=== PATIENT | male | born 1975 | race Caucasian/White ===

== ENCOUNTER 2016-12-04 21:38 | Emergency (ER) | payer OTHER ==
[2016-12-04 22:00] VITALS: PULSE 72
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
--- NOTE | 2016-12-04 23:10 | XR ---
EXAM: XR Left Foot Complete, 3 or More Views. CLINICAL HISTORY: Reason: Pain TECHNIQUE: Frontal, lateral and oblique views of the left foot. COMPARISON: No relevant prior studies available. FINDINGS: Bones/joints: Unremarkable. No acute fracture. No dislocation. Soft tissues: Unremarkable. No radiopaque foreign body. IMPRESSION: Normal left foot x-rays.
[2016-12-04 23:31] VITALS: BP 135/65; RESP 18; TEMP 98.2
== END 2016-12-04 23:30 | disposition home or self-care (01) ==
LOC: EC 21:38
DX: S46.911A Strain of unspecified muscle, fascia and tendon at shoulder and upper arm level, right arm, initial encounter (principal); S90.112A Contusion of left great toe without damage to nail, initial encounter; F31.9 Bipolar disorder, unspecified; Z79.899 Other long term (current) drug therapy; V87 Traffic accident of specified type but victim's mode of transport unknown; Y92.410 Unspecified street and highway as the place of occurrence of the external cause
CPT/HCPCS: 99284

== ENCOUNTER 2016-12-06 11:39 | Emergency (ER) | payer OTHER, BC ==
[2016-12-06 11:48] VITALS: RESP 18
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
[2016-12-06 13:46] VITALS: BP 125/56; PULSE 77; TEMP 97.9
== END 2016-12-06 13:30 | disposition home or self-care (01) ==
LOC: EC 11:39
DX: S09.90XA Unspecified injury of head, initial encounter (principal); R42 Dizziness and giddiness; F31.9 Bipolar disorder, unspecified; Z79.899 Other long term (current) drug therapy; V89.2XXA Person injured in unspecified motor-vehicle accident, traffic, initial encounter; Y92.009 Unspecified place in unspecified non-institutional (private) residence as the place of occurrence of the external cause
CPT/HCPCS: 70450; 99284

== ENCOUNTER → 2017-02-01 | Outpatient (CLI) | payer BC ==
--- NOTE | 2017-02-01 10:55 | CT ---
EXAMINATION TYPE: CT sinus wo con DATE OF EXAM: 02/01/2017 9:26 AM COMPARISON: NONE HISTORY: Nasal polyps, chronic sinusitis CT DLP: 545 mGycm Automated exposure control for dose reduction was used. Helical imaging through the paranasal sinuses FINDINGS: Extensive mucosal thickening is present within the bilateral maxillary sinuses, lobular soft tissue d ensity is present within the bilateral maxillary sinus, ethmoid air cells, opacification of the left sphenoid sinus and frontoethmoidal region, mucosal thickening also present in the frontal sinus. Disc ontinuity of the left frontal sinus may be due to prior surgical intervention, superficial scalp thic kening is present at this level. Orbits show symmetric appearance. Postop changes are noted to the si nuses. No thickening of the tympanic membranes. Auditory ossicles are unremarkable as seen. Temporomandibula r joints are intact. IMPRESSION: FINDINGS COMPATIBLE WITH PERSISTENT OR RECURRENT POLYP DISEASE, SINUSITIS.
== END | disposition home or self-care (01) ==
LOC: RADCTMAIN 09:12
PROVIDERS: ATTEND Otolaryngology
DX: J32.9 Chronic sinusitis, unspecified (principal)
CPT/HCPCS: 70486

== ENCOUNTER → 2017-03-03 | Outpatient (CLI) | payer BC ==
[2017-03-03 11:25] LABS: Blood Urea Nitrogen 12 mg/dL (9-20); Non-African American GFR(MDRD) >60 (>60 ml/min/1.73 sqM)
[2017-03-03 12:01] LABS: Lithium 0.6 mmol/L
== END | disposition home or self-care (01) ==
LOC: LABWHC1 10:01
PROVIDERS: ATTEND Internal Medicine Endocrinology, Diabetes & Metabolism
DX: E05.90 Thyrotoxicosis, unspecified without thyrotoxic crisis or storm (principal); F31.31 Bipolar disorder, current episode depressed, mild
CPT/HCPCS: 36415; 80178; 82565; 84439; 84443; 84445; 84480; 84520

== ENCOUNTER → 2017-03-19 | Outpatient (CLI) | payer BC ==
--- NOTE | 2017-03-19 10:55 | US ---
EXAMINATION TYPE: US thyroid st tissue head/neck DATE OF EXAM: 03/19/2017 COMPARISON: NONE CLINICAL HISTORY: E05.90 thyrotoxicosis. GLAND SIZE: Right Lobe: 5.9 x 2.4 x 1.7 cm Overall Parenchyma: homogenous Left Lobe: 5.5 x 2.4 x 1.5 cm Overall Parenchyma: homogeneous Isthmus Thickness: 0.5 cm NODULES RIGHT: # of nodules measured on right: 2 1. 0.6 X 0.8 x 0.6 cm hypoechoic cystic nodule at the lower pole with well-defined margins; present with microcalcifications. This nodule is wider than tall and shows no intranodular vascularity. 2. 0.5 X 0.4 x 0.3 cm hypoechoic solid nodule at the lower mid pole with well-defined margins. This nodule is wider than tall and shows no intranodular vascularity. LEFT: # of nodules measured on left: 2 1. 1.8 X 1.1 x 1.0 cm hypoechoic cystic nodule at the mid pole with well-defined margins; present w ith microcalcifications. This nodule is wider than tall and shows no intranodular vascularity. 2. 1.2 X 0.8 x 0.6 cm hypoechoic cystic nodule at the lower pole with well-defined margins; present with microcalcifications. This nodule is wider than tall and shows no intranodular vascularity. ISTHMUS: # of nodules measured in the isthmus: 0 Bilateral neck scanned, no evidence of lymphadenopathy. Thyroid gland is slightly enlarged in size and fairly homogeneous echotexture with scattered small no dules in the right thyroid lobe. There are 2 larger cystic nodules in left thyroid lobe with hyperech oic foci felt to reflect colloid, largest measures 1.8 cm on long axis mid pole level. IMPRESSION: Thyroid gland is slightly enlarged in size with few greater than 1 cm cystic nodules left thyroid lob e felt to contain colloid or be benign. No greater than 1 cm suspicious solid nodules are evident sharita aterally.
--- NOTE | 2017-03-20 11:24 | NM ---
EXAMINATION TYPE: NM thyroid image w uptake DATE OF EXAM: 03/20/2017 COMPARISON: NONE HISTORY: Thyrotoxicosis TECHNIQUE: After the intravenous administration of 11.0 mCi Tc 99m Sodium Pertechnetate, thyroid imag ing is performed 10 minutes post injection. Thyroid iodine uptake is calculated after the oral admini stration of 20.0 uCi I-131 capsule. FINDINGS: There is normal distribution of activity throughout the gland. There are no hot or cold le sions. The 4 hour iodine uptake is calculated at 7.1% (normal range 8-14%). The 24-hour iodine uptake is marilu culated at 17.3% (normal range 15-35%). IMPRESSION: NORMAL THYROID SCAN AND UPTAKE.
== END | disposition home or self-care (01) ==
LOC: RADUSMAIN 09:48
PROVIDERS: ATTEND Internal Medicine Endocrinology, Diabetes & Metabolism
DX: E04.2 Nontoxic multinodular goiter (principal); E05.90 Thyrotoxicosis, unspecified without thyrotoxic crisis or storm
CPT/HCPCS: 76536; 78014

== ENCOUNTER 2017-05-24 13:02 | Inpatient (IN) | payer BC, OTHER ==
--- NOTE | 2017-05-24 13:32 | ED ---
General Adult HPI - General Chief complaint: Psychiatric Symptoms Stated complaint: Mental Health Time Seen by Provider: 05/24/17 13:11 Source: patient, family, RN notes reviewed Mode of arrival: ambulatory Limitations: no limitations - History of Present Illness Initial comments: 42-year-old male presents to the emergency department with a chief complaint of bipolar episode. Patient states she's having large episodes of depression as well as zayra that comes out in a rage. He has had suicidal thoughts at this time he has no suicidal thoughts. Patient states his urged him to be evaluated. Last saw psychiatrist was 2 months ago. Patient states he has been taking all of his medications as prescribed. At this time the patient has no other complaints. Has no physical complaints.Patient denies any recent fever, chills, shortness of breath, chest pain, back pain, abdominal pain, nausea vomiting, numbness or tingling, dysuria or hematuria, constipation or diarrhea, headaches or visual changes, or any other current symptoms. - Related Data Home Medications Medication Instructions Recorded Confirmed [place] Carbonate 600 mg PO BID 12/04/16 05/24/17 Lurasidone [Latuda] 80 mg PO HS 12/04/16 05/24/17 ALPRAZolam [Xanax] 0.5 mg PO BID PRN 05/24/17 05/24/17 Fluticasone Nasal [place] [Flonase 2 spr EA NOSTRIL HS 05/24/17 05/24/17 Nasal [place]] Allergies Allergy/AdvReac Type Severity Reaction Status Date / Time No Known Allergies Allergy Verified 05/24/17 13:27 Review of Systems ROS Statement: Those systems with pertinent positive or pertinent negative responses have been documented in the HPI. ROS Other: All systems not noted in ROS Statement are negative. Past Medical History Past Medical History: No Reported History History of Any Multi-Drug Resistant Organisms: None Reported Additional Past Surgical History / Comment(s): sinus sx Past Psychological History: Anxiety, Bipolar, Depression Smoking Status: Never smoker Past Alcohol Use History: None Reported Past Drug Use History: None Reported General Exam Limitations: no limitations General appearance: alert, in no apparent distress Head exam: Present: atraumatic, normocephalic, normal inspection Neck exam: Present: normal inspection. Absent: tenderness, meningismus, lymphadenopathy Respiratory exam: Present: normal lung sounds bilaterally. Absent: respiratory distress, wheezes, rales, rhonchi, stridor Cardiovascular Exam: Present: regular rate, normal rhythm, normal heart sounds. Absent: systolic murmur, diastolic murmur, rubs, gallop, clicks Neurological exam: Present: alert, oriented X3 Psychiatric exam: Present: agitated, suicidal ideation. Absent: homicidal ideation Skin exam: Present: warm, dry, intact, normal color. Absent: rash Course Vital Signs 05/24/17 13:03 Temperature 98.7 F Pulse Rate 76 Respiratory 18 Rate Blood Pressure 120/75 O2 Sat by Pulse 97 Oximetry Medical Decision Making - Medical Decision Making 42-year-old male presents emergency department with a chief complaint of bipolar episode. At this time the patient does not appear to be suffering from acute medical emergencies and he is cleared to be evaluated by psychiatry. At this time psychiatry does recommend admission. - Lab Data Lab Results 05/24/17 05/24/17 Range/Units 13:30 13:47 Urine Opiates Screen Not Detected (NotDetected) Ur Oxycodone Screen Not Detected (NotDetected) Urine Methadone Screen Not Detected (NotDetected) Ur Propoxyphene Screen Not Detected (NotDetected) Ur Barbiturates Screen Not Detected (NotDetected) U Tricyclic Antidepress Not Detected (NotDetected) Ur Phencyclidine Scrn Not Detected (NotDetected) Ur Amphetamines Screen Not Detected (NotDetected) U Methamphetamines Scrn Not Detected (NotDetected) U Benzodiazepines Scrn Not Detected (NotDetected) [place] 1.0 mmol/L Urine Cocaine Screen Not Detected (NotDetected) U Marijuana (THC) Screen Not Detected (NotDetected) Disposition Clinical Impression: Depression Disposition: TRANSFER TO PSYCH HOSP/UNIT Referrals: Evans Alicea MD [Primary Care Provider] - 1-2 days
[2017-05-24] MEDS ORDERED: ZIPRASIDONE 20 MG VIAL IM PRN (18:19)
[2017-05-24] MEDS ORDERED: MAGNESIUM HYDROXIDE 2,400 MG/10 ML CUP PO PRN (18:19)
[2017-05-24] MEDS ORDERED: ACETAMINOPHEN TAB 325 MG TAB PO PRN (18:19)
[2017-05-24] MEDS ORDERED: LORazepam 1 MG TAB PO PRN (18:19)
[2017-05-24] MEDS ORDERED: MAG HYDROX/AL HYDROX/SIMETH 30 ML CUP PO PRN (18:19)
[2017-05-24] MEDS: LITHIUM CARBONATE 300 MG CAP PO SCH (20:21)
[2017-05-24] MEDS: FLUTICASONE 50MCG/SPRAY NASAL 16GM EA NOSTRIL SCH (20:21)
[2017-05-24] MEDS: LURASIDONE 80 MG TAB PO SCH (20:21)
--- NOTE | 2017-05-24 22:58 | P.CONS ---
History of Present Illness - Reason for Consult Consult date: 05/24/17 Medical management Requesting physician: Tiarra Davies - Chief Complaint Depressed and anxious - History of Present Illness Consultation: This is a 32-year-old patient of Dr. Alicea. Has a known history of bipolar disorder. Patient's fluctuating both between depression and 9 anxiety interfering with his performance. Hence patient presented to the ER and decided to come in. Patient refusing rather depressed and answers many getting into a rage. He is also had occasional suicidal thoughts. Patient has been taking his medications as advised. GEN.: None EYES: None HEENT: None NECK: None RESPIRATORY: None CARDIOVASCULAR: None GASTROINTESTINAL: None GENITOURINARY: None MUSCULOSKELETAL: None LYMPHATICS: None HEMATOLOGICAL: None PSYCHIATRY: As above NEUROLOGICAL: None Past medical history: Bipolar disorder Past surgical history: Sinus surgery Social history: No smoking, no alcohol. 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 Family history: Reviewed, noncontributory to presentation Home medications: Reviewed in the computer ALLERGIES: None VITAL SIGNS: 98.4, 18, 123/72, 97% room air GENERAL: Average built, BMI 30.3, laying in bed anxious appearing. EYES: Pupils equal. Conjunctiva normal. HEENT: External appearance of nose and ears normal, oral cavity grossly normal. NECK: JVD not raised; masses not palpable. HEART: First and second heart sounds are normal; no edema. LUNGS: Respiratory rate normal; clear to auscultation. ABDOMEN: Soft, nontender, liver spleen not palpable, no masses palpable. LYMPHATICS: No lymph nodes palpable in the axilla and neck. PSYCH: Alert and oriented x3; mood and affect anxious appearingl. NEUROLOGICAL: Cranial nerves grossly intact; no facial asymmetry, power and sensation grossly intact. Investigations: Urine drug screen negative Assessment: -Obesity BMI 30.3 -Bipolar disorder with both manic and depressive episodes with acute flareup -Chronic sinusitis Plan: Patient to continue on Flonase. Should see a dietitian for weight loss measures. To follow-up with PCP. Psychiatry medications per attending. Taken Dr. Davies Past Medical History Past Medical History: No Reported History History of Any Multi-Drug Resistant Organisms: None Reported Additional Past Surgical History / Comment(s): sinus sx Past Psychological History: Anxiety, Bipolar, Depression Smoking Status: Never smoker Past Alcohol Use History: None Reported Past Drug Use History: None Reported Medications and Allergies Home Medications Medication Instructions Recorded Confirmed Type [place] Carbonate 600 mg PO BID 12/04/16 05/24/17 History Lurasidone [Latuda] 80 mg PO HS 12/04/16 05/24/17 History ALPRAZolam [Xanax] 0.5 mg PO BID PRN 05/24/17 05/24/17 History Fluticasone Nasal [place] [Flonase 2 spr EA NOSTRIL HS 05/24/17 05/24/17 History Nasal [place]] Allergies Allergy/AdvReac Type Severity Reaction Status Date / Time No Known Allergies Allergy Verified 05/24/17 13:27
[2017-05-25] MEDS: LITHIUM CARBONATE 300 MG CAP PO SCH ×2 (08:34→20:37)
[2017-05-25 09:43] LABS: Basophils # (A) 0.1 k/uL (0-0.2); Basophils % (A) 1 %; CH 31.1; CHCM 34.9; Eosinophils # (A) 0.9 k/uL (0-0.7); Eosinophils % (A) 11 %; HCT 47.4 % (39.0-53.0); HDW 2.81; HGB 16.5 gm/dL (13.0-17.5); Luc # (Auto) 0.24; Luc % (Auto) 3; Lymphocytes # (A) 2.2 k/uL (1.0-4.8); Lymphocytes % (A) 27 %; MCH 31.1 pg (25.0-35.0); MCHC 34.8 g/dL (31.0-37.0); MCV 89.6 fL (80.0-100.0); Mean Platelet Volume 6.8; Monocytes # (A) 0.4 k/uL (0-1.0); Monocytes % (A) 5 %; Neutrophils # (A) 4.2 k/uL (1.3-7.7); Neutrophils % (A) 53 %; RBC 5.29 m/uL (4.30-5.90); RDW 12.7 % (11.5-15.5); WBC (Perox) 8.33
[2017-05-25 10:05] LABS: ALT 33 U/L (21-72); AST 16 U/L (17-59); Alkaline Phosphatase 61 U/L (38-126); Anion Gap 13 mmol/L; Bilirubin, Delta 0.2 mg/dL (0.0-0.2); Blood Urea Nitrogen 16 mg/dL (9-20); Calcium 9.6 mg/dL (8.4-10.2); Carbon Dioxide 19 mmol/L (22-30); Chloride 107 mmol/L (98-107); Glucose 174 mg/dL (74-99); Non-African American GFR(MDRD) >60 (>60 ml/min/1.73 sqM); Potassium 4.6 mmol/L (3.5-5.1); Sodium 139 mmol/L (137-145); Total Bilirubin 0.4 mg/dL (0.2-1.3); Total Protein 6.8 g/dL (6.3-8.2)
--- NOTE | 2017-05-25 15:06 | P.HP ---
Psychiatric H&P - . H&P Date: 05/25/17 History & Physical: Allergies Allergy/AdvReac Type Severity Reaction Status Date / Time No Known Allergies Allergy Verified 05/24/17 13:27 Vital Signs Temp 97.9 F 05/25/17 06:36 Pulse 62 05/25/17 06:36 Resp 16 05/25/17 06:36 BP 108/58 05/25/17 06:36 Pulse Ox 97 05/24/17 18:07 Intake & Output 05/24/17 05/25/17 05/25/17 18:59 06:59 18:59 Weight 90.29 kg Laboratory Last Values WBC 8.0 k/uL (3.8-10.6) 05/25/17 08:53 RBC 5.29 m/uL (4.30-5.90) 05/25/17 08:53 Hgb 16.5 gm/dL (13.0-17.5) 05/25/17 08:53 Hct 47.4 % (39.0-53.0) 05/25/17 08:53 MCV 89.6 fL (80.0-100.0) 05/25/17 08:53 MCH 31.1 pg (25.0-35.0) 05/25/17 08:53 MCHC 34.8 g/dL (31.0-37.0) 05/25/17 08:53 RDW 12.7 % (11.5-15.5) 05/25/17 08:53 Plt Count 381 k/uL (150-450) 05/25/17 08:53 Neutrophils % 53 % 05/25/17 08:53 Lymphocytes % 27 % 05/25/17 08:53 Monocytes % 5 % 05/25/17 08:53 Eosinophils % 11 % 05/25/17 08:53 Basophils % 1 % 05/25/17 08:53 Neutrophils # 4.2 k/uL (1.3-7.7) 05/25/17 08:53 Lymphocytes # 2.2 k/uL (1.0-4.8) 05/25/17 08:53 Monocytes # 0.4 k/uL (0-1.0) 05/25/17 08:53 Eosinophils # 0.9 k/uL (0-0.7) H 05/25/17 08:53 Basophils # 0.1 k/uL (0-0.2) 05/25/17 08:53 Sodium 139 mmol/L (137-145) 05/25/17 08:53 Potassium 4.6 mmol/L (3.5-5.1) 05/25/17 08:53 Chloride 107 mmol/L (98-107) 05/25/17 08:53 Carbon Dioxide 19 mmol/L (22-30) L 05/25/17 08:53 Anion Gap 13 mmol/L 05/25/17 08:53 BUN 16 mg/dL (9-20) 05/25/17 08:53 Creatinine 0.89 mg/dL (0.66-1.25) 05/25/17 08:53 Est GFR (MDRD) Af Amer >60 (>60 ml/min/1.73 sqM) 05/25/17 08:53 Est GFR (MDRD) Non-Af >60 (>60 ml/min/1.73 sqM) 05/25/17 08:53 Glucose 174 mg/dL (74-99) H 05/25/17 08:53 Calcium 9.6 mg/dL (8.4-10.2) 05/25/17 08:53 Total Bilirubin 0.4 mg/dL (0.2-1.3) 05/25/17 08:53 Conjugated Bilirubin 0.0 mg/dL (0.0-0.3) 05/25/17 08:53 Unconjugated Bilirubin 0.2 mg/dL (0.0-1.1) 05/25/17 08:53 Delta Bilirubin 0.2 mg/dL (0.0-0.2) 05/25/17 08:53 AST 16 U/L (17-59) L 05/25/17 08:53 ALT 33 U/L (21-72) 05/25/17 08:53 Alkaline Phosphatase 61 U/L (38-126) 05/25/17 08:53 Total Protein 6.8 g/dL (6.3-8.2) 05/25/17 08:53 Albumin 4.2 g/dL (3.5-5.0) 05/25/17 08:53 TSH 2.440 mIU/L (0.465-4.680) 05/25/17 08:53 Urine Opiates Screen Not Detected (NotDetected) 05/24/17 13:30 Ur Oxycodone Screen Not Detected (NotDetected) 05/24/17 13:30 Urine Methadone Screen Not Detected (NotDetected) 05/24/17 13:30 Ur Propoxyphene Screen Not Detected (NotDetected) 05/24/17 13:30 Ur Barbiturates Screen Not Detected (NotDetected) 05/24/17 13:30 U Tricyclic Antidepress Not Detected (NotDetected) 05/24/17 13:30 Ur Phencyclidine Scrn Not Detected (NotDetected) 05/24/17 13:30 Ur Amphetamines Screen Not Detected (NotDetected) 05/24/17 13:30 U Methamphetamines Scrn Not Detected (NotDetected) 05/24/17 13:30 U Benzodiazepines Scrn Not Detected (NotDetected) 05/24/17 13:30 [place] 1.0 mmol/L 05/24/17 13:47 Urine Cocaine Screen Not Detected (NotDetected) 05/24/17 13:30 U Marijuana (THC) Screen Not Detected (NotDetected) 05/24/17 13:30 05/25/17 14:50 Identification: Patient is a 42-year-old male who was brought to the emergency room after his spoke with his psychiatrist, Dr. Gold due to his recent episodes of agitation and rage. History of Present Illness: Patient states that he has been feeling depressed for over the last year with decreased motivation and increased sleep with difficulty getting up in the morning and so he was begun on Cymbalta 4 months ago at 20 mg and after one month increased to 30 mg. He last saw Dr. Gold 2 months ago and was to see him yesterday. Patient states that recently he was not compliant with his medications due to his being in the hospital and he DC'd the Cymbalta himself 2 weeks ago. He states that about that time or perhaps a week prior to that he began to feel more agitated and having issues at home yelling and screaming with verbal fights with his he reports no physical confrontations and no property distraction. Patient states he has been taking his lithium 600 mg twice a day and his Latuda 80 mg at bedtime which he does take with food. Patient states that he is not having any current suicidal ideation and states that he is feeling tired with no motivation and feeling depressed. Patient didn't however tell his that he was feeling suicidal, stating that he could make look like an accident at work Patient states that he has had mood issues since his late teens but was not diagnosed with bipolar disorder until 2009. He is able to report episodes in the past of manic behavior where he doesn't sleep has an increased level of energy, talks a lot talks too fast and has impulsive behaviors of spending money. He states he also has had unrealistic ideas at that time and on several occasions when his episodes of been severe he has had auditory hallucinations and feels that he has special ann. He also reports that he is extremely irritable during these periods. Patient also is able to endorse episodes of depression with increased amounts of sleep and decreased levels of energy and a lack of motivation. He states he is even more socially withdrawn than usual and he doesn't talk to anyone at those times. He reports feeling helpless and hopeless at those times and is not productive at work. He reports taking overdoses in the past on 3 occasions as a suicide attempt but received no medical care for any of them. Patient reports that he has lost 2 jobs in the past due to his episodes of depression prior to the diagnosis being made in 2008 and in 2009. I asked the patient about the notebook that was placed at the nursing station where he has written over and over and he describes these as affirmations and this is a technique that he has used to try to have positive outlook in the future. He states he was born and raised in [place] and would like to return there and would like to be financially successful. Patient denies any obsessive -compulsive symptoms. Past Psychiatric History: Patient reports that he was admitted in 2009 and again in August 2016. He reports that he was treated for depression at the age of 34 for the first time with Zoloft which caused a manic episode resulting in his admission and he was admitted in August 2016 in [place] with symptoms of depression. Patient reports he has been tried on Tegretol, Risperdal, Zoloft , Wellbutrin and Cymbalta and Lamictal. Patient reports he had a manic episode after being treated with Zoloft. Past Medical/Surgical History: Patient reports chronic sinus infections and is status post for sinus surgeries. He reports no other medical problems and no other surgical procedures. Home Medications Medication Instructions Recorded Confirmed [place] Carbonate 600 mg PO BID 12/04/16 05/24/17 Lurasidone [Latuda] 80 mg PO 12/04/16 05/24/17 ALPRAZolam [Xanax] 0.5 mg PO BID PRN 05/24/17 05/24/17 Fluticasone Nasal [place] [Flonase 2 spr EA NOSTRIL HS 05/24/17 05/24/17 Nasal [place]] Family History: Patient states that he has a brother who is treated for anxiety , a maternal cousin who is diagnosed with bipolar disorder and he states that both grandfathers had alcohol use problems. He reports no completed suicides in the family Social History: Patient was born and raised in [place] to parents who are both still alive. He has 2 brothers and 3 sisters and states he has a good relationship with his family. Patient completed high school and went on to obtain a bachelor science degree in electrical engineering. Patient has worked since he finished college and states that the only time he did not work was when he was fired in 2009 and it took him a year to find another job. He states they moved from [place] to [place] for his work and then back to [place] due to his having multiple sclerosis and not tolerating the warm weather. He is currently working and states he last worked several days ago. Patient is for the last 10 years and has an 8-year-old daughter and a 3- year-old son, a his 's 19-year-old son also lives with the them. Patient reports no abuse history. Substance Use History: patient states that he uses alcohol on a rare occasion and has no prior current history of drug use. Patient reports he has never used tobacco products. Legal History: Denies any history Mental Status:Appearance/Attitude: Patient is appropriately dressed and makes good eye contact and is cooperative. Behavior: Patient does not display any psychomotor agitation or retardation. Speech/Language: Patient's speech is spontaneous, of normal volume and rhythm and he is coherent. Thought Process: Patient is goal-directed and there is no evidence of circumstantial or tangential thought and no loose associations or flight of ideas. Thought Content: Patient denies any auditory or visual hallucinations and no delusions or paranoid ideation are elicited. The patient denies racing thoughts and denies having any unrealistic goals for himself. Patient reports that he has no energy and has decreased motivation, he reports that he is oversleeping and continues to feel tired. Patient reports no appetite disturbance. Patient states that he is socially withdrawn and not talking much. Patient also reports that he is feeling more agitated and has gotten into verbal disagreements and confrontations with his . Suicidal/Homicidal Ideation: Patient denies any current suicidal or homicidal ideation. Sensorium/Cognition: Patient is alert and oriented to person, place, and time and his memory is grossly intact. Mood/Affect: Patient's mood is depressed and his affect is blunted. Insight/Judgement: Patient's insight and judgment are fair. Intellectual Functioning: Patient's intellectual functioning appears average Strength/Weaknesses: Patient is employed, has a supportive family/recent noncompliance with medication Assessment: Patient presents with a history of bipolar disorder and states that he has been depressed for over the last year and that his current combination of lithium and Latuda were not fully resolving his depressive symptoms. He was recently begun on Cymbalta and titrated to a dose of 30 mg a day which the patient states he stopped himself 2 weeks ago when he was not taking his medications on a regular basis while his was in the hospital. Patient states that about 3 weeks ago he began feeling more agitated and irritable and has been having verbal disagreements with his . Patient also voiced suicidal ideation to his but denies it to me currently. Patient is expressing depressive symptoms of decreased energy and motivation, stating that he oversleeps and that he is feeling hopeless and helpless. Admission Diagnoses: Bipolar type I disorder, current episode depressed Plan: Patient was admitted on a voluntary basis, routine laboratory studies and a medical consultation were requested. Patient was also ordered group and activity therapy and he will be maintained on routine observations. Patient was continued on his lithium carbonate 600 mg twice a day to target his mood, Latuda 80 mg at bedtime with food to target his depression. Patient will have a repeat lithium level drawn tomorrow morning to get an accurate reading of his lithium level. Patient and I discussed a retrial of Lamictal to augment the lithium and stabilizing his mood and treating his depression. Patient was agreeable to this and so we'll begin Lamictal 25 mg a day. 05/25/17 15:02
[2017-05-25] MEDS: FLUTICASONE 50MCG/SPRAY NASAL 16GM EA NOSTRIL SCH (20:37)
[2017-05-25] MEDS: LURASIDONE 80 MG TAB PO SCH (20:37)
[2017-05-26] MEDS: lamoTRIgine 25 MG TAB PO SCH (08:23)
[2017-05-26] MEDS: LITHIUM CARBONATE 300 MG CAP PO SCH ×2 (08:23→20:46)
--- NOTE | 2017-05-26 13:34 | P.PN ---
Progress Note - Text Date of service: 05/26/2017 Chief complaint: "I am feeling better" Subjective: The patient has been seen today as follow-up, chart reviewed, case discussed with the treatment team. Patient slept about 6 hours last night but was interrupted. Patient has been going to groups and other unit activities. Patient reports fair appetite problems. Patient reports his depression still there and has times feels very hopeless and worthless. He denies any suicidal thoughts since he came to the hospital but he admitted for not feeling safe outside the hospital. The patient endorsed feeling more irritable, easily agitated and "kind of hyper ". The patient denies any auditory or visual hallucinations. Also the patient denies any paranoid ideation. The patient is compliant with medications and denies any adverse reactions. Review of other systems: Patient denies any physical symptoms besides what has been mentioned above. No breathing problems, no chest pain reported today. Objective: Vitals has been reviewed. Mental status examination; Appearance: The patient appears stated age, adequately groomed, no specific features. Gait/posture:Normal arm swinging: No abnormal movements. Attitude and behavior: engaged, cooperative, intermittent eye contact. Motor activity: normal psychomotor activity Speech: normal tone and volume Mood: depressed Affect: constricted Thought form: goal-directed, linear, coherent. Thought content: Non-delusional, denies active suicidal thoughts, denies homicidal thoughts, denies intentions or plans. Perception: Denies any auditory or visual hallucinations Attention: No impairment. Orientation: Patient patient was fully oriented to time place person and situation. Insight: Patient has limited insight about his psychiatric disorder. Judgment: Patient has limited judgment about his psychiatric treatment. Assessment: Bipolar type I disorder, current episode depressed Plan: Continue with inpatient psychiatric hospitalization for monitoring and continue treatment. Continue group therapy and other unit activities. Continue psychiatric medications: Latuda, [place], and Lamictal [place] level today 0.9. No need for increase [place] dose. Discharge planning is ongoing.
[2017-05-26] MEDS: LURASIDONE 80 MG TAB PO SCH (20:46)
[2017-05-26] MEDS: FLUTICASONE 50MCG/SPRAY NASAL 16GM EA NOSTRIL SCH (20:46)
[2017-05-27] MEDS: lamoTRIgine 25 MG TAB PO SCH (08:27)
[2017-05-27] MEDS: LITHIUM CARBONATE 300 MG CAP PO SCH ×2 (08:27→20:37)
--- NOTE | 2017-05-27 13:12 | P.PN ---
Progress Note - Text Date of service: 05/27/2017 Chief complaint: "I am feeling okay " Subjective: The patient has been seen today as follow-up, chart reviewed, case discussed with the treatment team. Patient slept about 6 hours last night. Patient has been going to groups and other unit activities. Patient reports fair appetite problems. Patient reports feels better today and he minimized depression. He denies feeling hopeless or worthless. The patient denies suicidal thoughts and he denies any intention to hurt self or others. He reports in general feels better and that medication is started to "kick in." He denies any severe mood swings or feeling agitated. The patient denies any manic or psychotic symptoms.The patient is compliant with his medications and denies any adverse reactions. Review of other systems: Patient denies any physical symptoms besides what has been mentioned above. No breathing problems, no chest pain reported today. Objective: Vitals has been reviewed. Mental status examination; Appearance: The patient appears stated age, adequately groomed, no specific features. Gait/posture:normal gait, Normal arm swinging: No abnormal movements. Attitude and behavior: engaged, cooperative, intermittent eye contact. Motor activity: normal psychomotor activity Speech: normal tone and volume Mood: depressed Affect: constricted Thought form: goal-directed, linear, coherent. Thought content: Non-delusional, denies suicidal thoughts, denies homicidal thoughts, denies intentions or plans. Perception: Denies any auditory or visual hallucinations Attention: No impairment. Orientation: Patient patient was fully oriented to time place person and situation. Insight: Patient has limited insight about his psychiatric disorder. Judgment: Patient has limited judgment about his psychiatric treatment. Assessment: Bipolar type I disorder, current episode depressed Plan: Continue with inpatient psychiatric hospitalization for monitoring and continue treatment. Continue group therapy and other unit activities. Continue psychiatric medications: Latuda, [place], and Lamictal [place] level today 0.9 on Sunday. No need for increase [place] dose. Continue follow up and discharge planning.
[2017-05-27] MEDS: FLUTICASONE 50MCG/SPRAY NASAL 16GM EA NOSTRIL SCH (20:36)
[2017-05-27] MEDS: LURASIDONE 80 MG TAB PO SCH (20:37)
[2017-05-28] MEDS: LITHIUM CARBONATE 300 MG CAP PO SCH ×2 (08:35→20:37)
[2017-05-28] MEDS: lamoTRIgine 25 MG TAB PO SCH (08:36)
--- NOTE | 2017-05-28 12:07 | P.PN ---
Progress Note - Text Interval History: Patient is a 42-year-old male who was seen today and he reports that he has been sleeping only 8-9 hours a night not over 12 hours at as he was at home. He reports he is able to get up in the morning and is not feeling sleepy during the day. Patient states that a visit with his over the weekend went well. Patient states he's been attending groups and activities. Patient reports no current suicidal ideation and states his mood is more stable and he is less depressed. Patient reports no side effects from the medications at this time. Patient states that he has been eating well and reports no symptoms of zayra. Mental Status: Appearance/Attitude: Patient is appropriately dressed, makes good eye contact and is cooperative. Behavior: Patient does not display any psychomotor agitation or retardation. Speech/Language: Patient's speech is spontaneous and of normal volume and rhythm and he is coherent. Thought Process: Patient is goal-directed there is no evidence of circumstantial or tangential thought and no loose associations or flight of ideas. Thought Content: Patient denies any auditory or visual hallucinations and no delusions or paranoid ideation or elicited. Patient states he is not having racing thoughts and reports that he slept only 8-9 hours a night which is much less than he was sleeping at home and he states he feels less sleepy during the day. Patient has been eating well. Suicidal/Homicidal Ideation: Patient denies any current suicidal or homicidal ideation. Sensorium/Cognition: Patient is alert and oriented to person, place, and time and his memory is grossly intact. Mood/Affect: Patient's mood is less depressed, he is much less irritable and his affect is appropriate. Insight/Judgement: Patient's insight and judgment are fair. Assessment: Patient has been continued on his lithium 600 mg twice a day and a repeat lithium level was within therapeutic levels at 0.9. Patient is continued on his Latuda 80 mg at bedtime with food. Patient was started on Lamictal at 25 mg a day. Patient is reporting he is feeling less irritable and less depressed and reports that he is sleeping less and feeling more awake during the day. Patient reports no side effects from the medication. Plan: Patient will continue on his current medication as the dose of Lamictal cannot be titrated until he has been on this dose for 2 weeks. Patient and I discussed discharge planning and we will discharge the patient tomorrow he will return to see his outpatient psychiatrist Dr. Gold. Patient was encouraged to continue to attend groups and activities and he states that he will return to his prior job once he is discharged.
[2017-05-28] MEDS: LURASIDONE 80 MG TAB PO SCH (20:37)
[2017-05-28] MEDS: FLUTICASONE 50MCG/SPRAY NASAL 16GM EA NOSTRIL SCH (20:38)
[2017-05-29 06:50] VITALS: PULSE 59; TEMP 97.5
[2017-05-29 06:51] VITALS: BP 112/58; RESP 16
[2017-05-29] MEDS: lamoTRIgine 25 MG TAB PO SCH (08:31)
[2017-05-29] MEDS: LITHIUM CARBONATE 300 MG CAP PO SCH (08:31)
--- NOTE | 2017-05-29 10:32 | P.DS ---
Providers Date of admission: 05/24/17 18:01 Expected date of discharge: 05/29/17 Attending physician: Tiarra Davies MD Consults: 05/24/17 18:19 Consult Physician Routine Consulting Provider: Jose A Morrow Consult Reason/Comments: H & P and medical care Do you want consulting provider notified?: Yes Primary care physician: Evans Alicea Hospital Course: Discharge Diagnoses: Bipolar disorder type I, current episode depressed Reason for Admission: Patient is a 42-year-old male who was brought to the emergency room after his spoke with his psychiatrist, Dr. nobles to [facility] due to his recent episodes of agitation and rage. Patient states that he has been feeling depressed over the last year with decreased motivation and increased sleep with difficulty getting up in the morning. He was begun on Cymbalta 4 months ago at 20 mg and after one month increased to 30 mg. He last seen the psychiatrist 2 months ago and was to see him on the day prior to admission. Patient states that recently he was not compliant with his medications due to his being in the hospital and he discontinued the Cymbalta himself about 2 weeks ago. He states that about that time or perhaps a week prior to that he began to feel more agitated and was yelling and screaming at home with verbal arguments with his . He reported no physical confrontations and no property destruction. Patient has been taking his lithium and Latuda as ordered. Patient reported that he is not having any current suicidal ideation, he was feeling tired with no motivation, feeling depressed however the patient did tell his that he was feeling suicidal and would make it look like an accident at work. Patient has had mood issues since his late teens but was not diagnosed with bipolar disorder until 2009. He is able to endorse episodes of manic behavior in the past as well as episodes of depression. Patient was last admitted in August 2016. Hospital Course: Patient was admitted on a voluntary basis, routine observation was ordered, routine laboratory studies were ordered and the patient had a medical consultation. Patient was also ordered group and activity therapy. Patient was continued on his lithium 600 mg twice a day and Latuda 80 mg at bedtime. Patient and I discussed his response to the Cymbalta which she did not think was beneficial as well as he thought it may have been increasing his agitation and so we decided to not restart that. Patient and I discussed a retrial of Lamictal combined with his lithium and so he was begun on Lamictal 25 mg a day. Patient reported that he was not having any suicidal ideation and stated that he was sleeping about 8 hours a night in the hospital or less and feeling rested in the morning and able to wake up without difficulty. He reported he was feeling less irritable and had a good visit with his . He stated that he has more energy and is not as tired and has been eating well. Patient was attending groups and activities on the unit. Patient reported that he felt ready to return to work as well as to return home and continue follow- up as an outpatient. Discharge Mental Status:Appearance/Attitude: Patient is appropriately dressed, makes good eye contact and is cooperative. Behavior: Patient does not display any psychomotor agitation or retardation. Speech/Language: Patient's speech is spontaneous, normal volume and rhythm and he is coherent. Thought Process: Patient was goal-directed and there is no evidence of loose associations or flight of ideas and he was not circumstantial or tangential. Thought Content: Patient denied any auditory or visual hallucinations, no delusions or paranoid ideation were elicited. The patient denied any racing thoughts. Patient reported that he was less irritable and had more energy and his attention and focus have improved. Patient stated that he was sleeping well at night, feeling rested and able to wake up without difficulty in the morning. Suicidal/Homicidal Ideation: Patient denied any current suicidal or homicidal ideation. Sensorium/Cognition: Patient was alert and oriented to person, place, and time and his memory is grossly intact. Mood/Affect: Patient's mood remains slightly depressed. He reports he is less irritable and feels less depressed and his affect is appropriate Insight/Judgement: Patient's insight and judgment are fair. Laboratory Last Values WBC 8.0 k/uL (3.8-10.6) 05/25/17 08:53 RBC 5.29 m/uL (4.30-5.90) 05/25/17 08:53 Hgb 16.5 gm/dL (13.0-17.5) 05/25/17 08:53 Hct 47.4 % (39.0-53.0) 05/25/17 08:53 MCV 89.6 fL (80.0-100.0) 05/25/17 08:53 MCH 31.1 pg (25.0-35.0) 05/25/17 08:53 MCHC 34.8 g/dL (31.0-37.0) 05/25/17 08:53 RDW 12.7 % (11.5-15.5) 05/25/17 08:53 Plt Count 381 k/uL (150-450) 05/25/17 08:53 Neutrophils % 53 % 05/25/17 08:53 Lymphocytes % 27 % 05/25/17 08:53 Monocytes % 5 % 05/25/17 08:53 Eosinophils % 11 % 05/25/17 08:53 Basophils % 1 % 05/25/17 08:53 Neutrophils # 4.2 k/uL (1.3-7.7) 05/25/17 08:53 Lymphocytes # 2.2 k/uL (1.0-4.8) 05/25/17 08:53 Monocytes # 0.4 k/uL (0-1.0) 05/25/17 08:53 Eosinophils # 0.9 k/uL (0-0.7) H 05/25/17 08:53 Basophils # 0.1 k/uL (0-0.2) 05/25/17 08:53 Sodium 139 mmol/L (137-145) 05/25/17 08:53 Potassium 4.6 mmol/L (3.5-5.1) 05/25/17 08:53 Chloride 107 mmol/L (98-107) 05/25/17 08:53 Carbon Dioxide 19 mmol/L (22-30) L 05/25/17 08:53 Anion Gap 13 mmol/L 05/25/17 08:53 BUN 16 mg/dL (9-20) 05/25/17 08:53 Creatinine 0.89 mg/dL (0.66-1.25) 05/25/17 08:53 Est GFR (MDRD) Af Amer >60 (>60 ml/min/1.73 sqM) 05/25/17 08:53 Est GFR (MDRD) Non-Af >60 (>60 ml/min/1.73 sqM) 05/25/17 08:53 Glucose 174 mg/dL (74-99) H 05/25/17 08:53 Calcium 9.6 mg/dL (8.4-10.2) 05/25/17 08:53 Total Bilirubin 0.4 mg/dL (0.2-1.3) 05/25/17 08:53 Conjugated Bilirubin 0.0 mg/dL (0.0-0.3) 05/25/17 08:53 Unconjugated Bilirubin 0.2 mg/dL (0.0-1.1) 05/25/17 08:53 Delta Bilirubin 0.2 mg/dL (0.0-0.2) 05/25/17 08:53 AST 16 U/L (17-59) L 05/25/17 08:53 ALT 33 U/L (21-72) 05/25/17 08:53 Alkaline Phosphatase 61 U/L (38-126) 05/25/17 08:53 Total Protein 6.8 g/dL (6.3-8.2) 05/25/17 08:53 Albumin 4.2 g/dL (3.5-5.0) 05/25/17 08:53 TSH 2.440 mIU/L (0.465-4.680) 05/25/17 08:53 Urine Opiates Screen Not Detected (NotDetected) 05/24/17 13:30 Ur Oxycodone Screen Not Detected (NotDetected) 05/24/17 13:30 Urine Methadone Screen Not Detected (NotDetected) 05/24/17 13:30 Ur Propoxyphene Screen Not Detected (NotDetected) 05/24/17 13:30 Ur Barbiturates Screen Not Detected (NotDetected) 05/24/17 13:30 U Tricyclic Antidepress Not Detected (NotDetected) 05/24/17 13:30 Ur Phencyclidine Scrn Not Detected (NotDetected) 05/24/17 13:30 Ur Amphetamines Screen Not Detected (NotDetected) 05/24/17 13:30 U Methamphetamines Scrn Not Detected (NotDetected) 05/24/17 13:30 U Benzodiazepines Scrn Not Detected (NotDetected) 05/24/17 13:30 [place] 0.9 mmol/L 05/26/17 08:10 Urine Cocaine Screen Not Detected (NotDetected) 05/24/17 13:30 U Marijuana (THC) Screen Not Detected (NotDetected) 05/24/17 13:30 Risk Assessment: Patient's risk for self-harm is moderate as the patient has had 3 suicide attempts in the past, however he is compliant with medication and has no alcohol or drug history use Discharge Plan: Patient will be discharged to return home to live with his and children, I completed a release for him to return to work as the patient states he is able to do so. Patient will continue on Lamictal 25 mg daily started on May 26 and he will be given a prescription for this. Patient continue on lithium 600 mg twice a day and his lithium level was 0.9 on this dosage and Latuda 80 mg at bedtime with food and he reports not needing prescriptions for either of these medications. Patient will return to follow- up with his private psychiatrist Dr. Gold. Patient Condition at Discharge: Stable Plan - Discharge Summary New Discharge Prescriptions: New lamoTRIgine [LaMICtal] 25 mg PO DAILY #14 tab Continue Lurasidone [Latuda] 80 mg PO HS [place] Carbonate 600 mg PO BID Fluticasone Nasal [place] [Flonase Nasal Ashley] 2 spr EA NOSTRIL HS ALPRAZolam [Xanax] 0.5 mg PO BID PRN PRN Reason: Anxiety Discharge Medication List [place] Carbonate 600 mg PO BID 12/04/16 [History] Lurasidone [Latuda] 80 mg PO HS 12/04/16 [History] ALPRAZolam [Xanax] 0.5 mg PO BID PRN 05/24/17 [History] Fluticasone Nasal [place] [Flonase Nasal [place]] 2 spr EA NOSTRIL HS 05/24/17 [ History] lamoTRIgine [LaMICtal] 25 mg PO DAILY #14 tab 05/29/17 [Rx] Follow up Appointment(s)/Referral(s): [facility] [Outside] - 1 Week (w/ Charlie Vargas on 06/01/17 @ 8am w/ Dr. Gold on 06/08/17 @ 10:20am) Evans Alicea MD [Primary Care Provider] - 1-2 days Discharge Disposition: HOME SELF-CARE
== END 2017-05-29 12:00 | disposition home or self-care (01) | DRG 885 ==
LOC: EC 13:02 → 3MHU 18:01
PROVIDERS: ADMIT Psychiatry & Neurology Psychiatry; ATTEND Psychiatry & Neurology Psychiatry
DX: F31.9 Bipolar disorder, unspecified (principal); Z91.14 Patient's other noncompliance with medication regimen; E66.9 Obesity, unspecified; F41.9 Anxiety disorder, unspecified; J32.9 Chronic sinusitis, unspecified; Z68.30 Body mass index [BMI] 30.0-30.9, adult; Z79.899 Other long term (current) drug therapy
CPT/HCPCS: 36415; 80053; 80178; 80306; 82075; 82248; 84443; 85025; 99285

== ENCOUNTER 2017-07-12 11:50 | Day surgery (SDC) | payer BC ==
[2017-07-10 13:05] VITALS: BMI 31.1
[~2017-07-12 11:50] MED LIST: LACTATED RINGERS 1,000 ML IV SCH
[2017-07-12 12:03] VITALS: TEMP 98.4
[2017-07-12] MEDS ORDERED: LIDOCAINE 1% 20 ML VIAL (10MG/ML) FOR IV START INTRADERMA ONE (12:05)
[2017-07-12] MEDS ORDERED: LIDOCAINE 1% INJ 10MG/ML (20 ML MDV) ONE (12:21)
[2017-07-12] MEDS ORDERED: PROPOFOL 10 MG/ML 20 ML VIAL IV ONE (12:21)
--- NOTE | 2017-07-12 12:53 | P.PCN ---
Date of Procedure: 07/12/17 Procedure(s) Performed: Procedure: Esophagogastroduodenoscopy and biopsy. Preoperative diagnosis: Gastroesophageal reflux and regurgitation. Postoperative diagnosis: Small sliding hiatal hernia with no obvious esophagitis or complicated reflux disease. Mild antral gastritis. Multiple biopsies obtained from the duodenum, antrum and esophagus. Preparation sedation: Was provided by anesthesia. Brief clinical history: The patient is a 42-year-old male who I have evaluated recently in the office regarding symptoms of acid reflux. He has been having that with regurgitation of stomach contents for the last 6 weeks. No dysphagia , odynophagia or bleeding. This evaluation is to assess for esophagitis, complicated reflux disease or peptic ulcer disease or other pathology. Procedure: With the patient on his left lateral decubitus position and after informed consent and adequate sedation, I passed the Olympus-GIF 160 video upper endoscope through the cricopharyngeus down the esophagus. GE junction was around 38 cm from the incisors and there was a small hiatal hernia but no obvious esophagitis or complicated reflux disease. The endoscope was then passed into the stomach which was insufflated with air and inspected in detail including the retroflex view in the cardia. There was some mottling and erythema in the antrum consistent with mild gastritis but there was no ulcers or gastric outlet obstruction. Pyloric channel, duodenal bulb, post bulbar area and descending duodenum appeared essentially within normal limits. Because of his symptoms, I obtained biopsies from the duodenum, antrum and esophagus then the endoscope was withdrawn. The patient tolerated the procedure well. Plan: The patient was reassured. Will await biopsy results. He will continue with acid suppressive therapy for now. Further plans will be made based on his course and biopsy results. I will keep you updated on his progress.
[2017-07-12 13:01] VITALS: BP 107/75; PULSE 78; RESP 18
== END 2017-07-12 13:15 | disposition home or self-care (01) ==
LOC: ORWHC2ENDO 11:50
DX: K21.0 Gastro-esophageal reflux disease with esophagitis (principal); K29.50 Unspecified chronic gastritis without bleeding; K44.9 Diaphragmatic hernia without obstruction or gangrene; F31.9 Bipolar disorder, unspecified; Z79.51 Long term (current) use of inhaled steroids; Z79.899 Other long term (current) drug therapy
CPT/HCPCS: 43239; 88305; 88342; J2001; J2704

== ENCOUNTER → 2017-11-08 | Outpatient (CLI) | payer BC ==
--- NOTE | 2017-11-08 13:52 | MR ---
EXAMINATION TYPE: MR thoracic spine wo con DATE OF EXAM: 11/08/2017 COMPARISON: NONE HISTORY: Pain in thoracic spine per order. Mid back pain for several months per patient. TECHNIQUE: Multiplanar, multisequence imaging of thoracic spine is performed without contrast FINDINGS: Spinal cord shows normal course, caliber, and signal as it courses the thoracic spine. Shania tebral body heights and alignment are satisfactory. Disc space heights are maintained. No suspicious posterior disc herniations are seen on sagittal images. Bone marrow signal intensity is preserved. No significant spurring is noted. Review of the axial images shows no significant spinal canal stenosis or neural foraminal narrowing a t any thoracic level. Small hiatal hernia is incidentally noted. IMPRESSION: No significant abnormality is seen to account for patient's symptoms in the thoracic spin e. Small hiatal hernia otherwise unremarkable study.
== END | disposition home or self-care (01) ==
LOC: RADMRIMAIN 12:37
PROVIDERS: ATTEND Psychiatry & Neurology Neurology
DX: K44.9 Diaphragmatic hernia without obstruction or gangrene (principal)
CPT/HCPCS: 72146

== ENCOUNTER → 2017-12-15 | Outpatient (CLI) | payer BC ==
[2017-12-15 11:33] LABS: Blood Urea Nitrogen 16 mg/dL (9-20); Lithium 0.8 mmol/L
[2017-12-15 11:43] LABS: T4, Free (Free Thyroxine) 1.01 ng/dL (0.78-2.19)
== END | disposition home or self-care (01) ==
LOC: LABWHC1 10:33
PROVIDERS: ATTEND Psychiatry & Neurology Psychiatry
DX: F31.31 Bipolar disorder, current episode depressed, mild (principal)
CPT/HCPCS: 36415; 80178; 82565; 84439; 84443; 84520

== ENCOUNTER → 2018-04-10 | Outpatient (CLI) | payer BC ==
[2018-04-10 10:58] LABS: Basophils % (A) 0 %; Eosinophils # (A) 0.4 k/uL (0-0.7); Eosinophils % (A) 4 %; HCT 44.5 % (39.0-53.0); HGB 14.8 gm/dL (13.0-17.5); Lymphocytes # (A) 3.2 k/uL (1.0-4.8); Lymphocytes % (A) 28 %; MCH 30.1 pg (25.0-35.0); MCHC 33.3 g/dL (31.0-37.0); MCV 90.3 fL (80.0-100.0); Mean Platelet Volume 7.2; Monocytes # (A) 0.8 k/uL (0-1.0); Monocytes % (A) 7 %; Neutrophils # (A) 6.8 k/uL (1.3-7.7); Neutrophils % (A) 59 %; Platelet Count 377 k/uL (150-450); RBC 4.93 m/uL (4.30-5.90); RDW 14.1 % (11.5-15.5); WBC 11.5 k/uL (3.8-10.6)
[2018-04-10 14:27] LABS: ALT 32 U/L (21-72); AST 16 U/L (17-59); Albumin 4.5 g/dL (3.5-5.0); Alkaline Phosphatase 52 U/L (38-126); Anion Gap 12 mmol/L; Blood Urea Nitrogen 18 mg/dL (9-20); Calcium 10.4 mg/dL (8.4-10.2); Carbon Dioxide 24 mmol/L (22-30); Chloride 105 mmol/L (98-107); Cholesterol 154 mg/dL (<200); Glucose 97 mg/dL (74-99); HDL Cholesterol 56 mg/dL (40-60); LDL Cholesterol,Calculated 77 mg/dL (0-99); Potassium 4.5 mmol/L (3.5-5.1); Sodium 141 mmol/L (137-145); Total Bilirubin 0.4 mg/dL (0.2-1.3); Total Protein 6.9 g/dL (6.3-8.2); Triglycerides 105 mg/dL (<150)
== END | disposition home or self-care (01) ==
LOC: LABWHC1 09:46
PROVIDERS: ATTEND Family Medicine
DX: E78.6 Lipoprotein deficiency (principal); R03.0 Elevated blood-pressure reading, without diagnosis of hypertension
CPT/HCPCS: 36415; 80053; 80061; 84443; 85025

== ENCOUNTER 2018-04-16 15:10 | Emergency (ER) | payer OTHER, BC ==
[2018-04-16] MEDS ORDERED: SODIUM CHLORIDE 0.9% 1,000 ML IV STA ×2 (15:15)
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
[2018-04-16 15:32] VITALS: RESP 18
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
[2018-04-16 15:45] LABS: Basophils % (A) 0 %; Eosinophils # (A) 0.4 k/uL (0-0.7); Eosinophils % (A) 2 %; HCT 43.7 % (39.0-53.0); HGB 15.4 gm/dL (13.0-17.5); Lymphocytes # (A) 1.6 k/uL (1.0-4.8); Lymphocytes % (A) 9 %; MCH 31.2 pg (25.0-35.0); MCHC 35.2 g/dL (31.0-37.0); MCV 88.7 fL (80.0-100.0); Mean Platelet Volume 6.5; Monocytes % (A) 6 %; Neutrophils # (A) 14.7 k/uL (1.3-7.7); Neutrophils % (A) 82 %; Platelet Count 435 k/uL (150-450); RBC 4.92 m/uL (4.30-5.90); RDW 14.2 % (11.5-15.5)
[2018-04-16 15:52] LABS: ALT 33 U/L (21-72); AST 24 U/L (17-59); Albumin 4.6 g/dL (3.5-5.0); Alcohol <10 mg/dL; Alkaline Phosphatase 63 U/L (38-126); Anion Gap 13 mmol/L; Blood Urea Nitrogen 11 mg/dL (9-20); Calcium 10.6 mg/dL (8.4-10.2); Carbon Dioxide 20 mmol/L (22-30); Chloride 106 mmol/L (98-107); Glucose 114 mg/dL (74-99); Sodium 139 mmol/L (137-145); Total Bilirubin 0.6 mg/dL (0.2-1.3); Total Protein 6.9 g/dL (6.3-8.2)
[2018-04-16 16:02] LABS: Creatine Kinase 89 U/L (55-170)
[2018-04-16 16:05] LABS: INR 1.1 (<1.2); Prothrombin Time 10.5 sec (9.0-12.0)
[2018-04-16 16:11] LABS: Partial Thromboplastin Time 19.7 sec (22.0-30.0)
[2018-04-16 16:14] LABS: Creatine Kinase MB 1.7 ng/mL (0.0-2.4); Troponin I <0.012 ng/mL (0.000-0.034)
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
[2018-04-16 16:33] LABS: Appearance,Urine Clear (Clear); Bilirubin,Urine Negative (Negative); Blood,Urine Negative (Negative); Color,Urine Light Yellow; Glucose,Urine (UA) Negative (Negative); Ketones,Urine Trace (Negative); Leukocyte Esterase,Urine Negative (Negative); Nitrite,Urine Negative (Negative); PH, Urine 7.5 (5.0-8.0); Protein,Urine Negative (Negative); Specific Gravity,Urine 1.011 (1.001-1.035); Urobilinogen,Urine <2.0 mg/dL (<2.0)
[2018-04-16 16:43] LABS: Amphetamine Screen,Urine Not Detected (NotDetected); Barbiturate Screen,Urine Not Detected (NotDetected); Benzodiazepines Screen,Urine Not Detected (NotDetected); Cocaine Screen,Urine Not Detected (NotDetected); Methadone Screen, Urine Not Detected (NotDetected); Opiate Screen,Urine Not Detected (NotDetected); Oxycodone Screen, Urine Not Detected (NotDetected); Phencyclidine Screen,Urine Not Detected (NotDetected); Tricyclic Antidepressant,Urine Not Detected (NotDetected); Urn Cannabinoid Scrn Not Detected (NotDetected)
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
--- NOTE | 2018-04-16 17:26 | XR ---
EXAMINATION TYPE: XR shoulder complete RT DATE OF EXAM: 04/16/2018 COMPARISON: NONE HISTORY: Shoulder pain TECHNIQUE: 3 views FINDINGS: I see no fracture nor dislocation. Joint spaces are normal. There are no pathologic calcifi cations. IMPRESSION: Negative right shoulder exam.
[2018-04-16 17:59] VITALS: BP 110/64; PULSE 80; TEMP 97
== END 2018-04-16 17:43 | disposition home or self-care (01) ==
LOC: EC 15:10
DX: S43.401A Unspecified sprain of right shoulder joint, initial encounter (principal); K21.9 Gastro-esophageal reflux disease without esophagitis; J32.9 Chronic sinusitis, unspecified; Z79.51 Long term (current) use of inhaled steroids; Z79.899 Other long term (current) drug therapy; V89.2XXA Person injured in unspecified motor-vehicle accident, traffic, initial encounter
CPT/HCPCS: 36415; 93005; 86900; 86901; 80053; 82550; 82553; 84484; 85025; 85610; 85730; 86850; 81003; 80306; 80320; 72170; 73030; 71045; 72125; 70450; 71260; 74177; 99285; 96360; 96361; Q9967

== ENCOUNTER → 2018-05-07 | Outpatient (CLI) | payer BC ==
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
== END | disposition home or self-care (01) ==
LOC: RADXRMAIN 16:51
PROVIDERS: ATTEND Family Medicine
DX: M51.37 Other intervertebral disc degeneration, lumbosacral region (principal)
CPT/HCPCS: 72220